=== PATIENT | female | born 1960 | race Caucasian/White ===

== ENCOUNTER 2023-03-16 14:42 | Outpatient (CLI) | payer OTHER ==
[2023-03-17 07:09] LABS: ESTRADIOL <5.0 pg/mL (.)
[2023-03-20 14:08] LABS: FREE TESTOSTERONE(DIRECT) 3.7 pg/mL (0.0-4.2); SEX HORM BINDING GLOB SERUM 38.2 nmol/L (17.3-125.0); TESTOSTERONE <3 ng/dL (3-67)
== END 2023-03-16 14:43 | disposition home or self-care (01) ==
LOC: LAB 14:42
PROVIDERS: ATTEND Obstetrics & Gynecology
DX: N95.1 Menopausal and female climacteric states (principal)
CPT/HCPCS: 36415; 82670; 84270; 84402; 84403